=== PATIENT | female | born 2000 | race Caucasian/White ===

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

== ENCOUNTER 2021-04-22 09:56 | Inpatient (IN) ==
[2021-04-22 11:15] LABS: Basophils # (auto) 0.01 K/uL (0-0.2); Basophils % (auto) 0.1 %; Eosinophils # (auto) 0.06 K/uL (0-0.5); Eosinophils % (auto) 0.5 %; Hematocrit (blood only) 36.1 % (37-47); Hemoglobin 11.8 g/dL (12.0-16.0); Immature Granulocytes # (auto) 0.03 K/uL (0.00-0.02); Immature Granulocytes % (auto) 0.2 %; Lymphocytes # (auto) 1.66 K/uL (1.2-3.4); Lymphocytes % (auto) 13.5 %; Mean Corpuscular Hemoglobin 29.4 pg (25-34); Mean Corpuscular Hgb Conc 32.7 g/dL (32-36); Mean Corpuscular Volume 89.8 fL (80-100); Mean Platelet Volume 9.3 fL (7.4-10.4); Monocytes # (auto) 0.47 K/uL (0.11-0.59); Monocytes % (auto) 3.8 %; Neutrophils # (auto) 10.04 K/uL (1.4-6.5); Neutrophils % (auto) 81.9 %; Platelet Count 288 K/uL (130-400); RDW Coefficient of Variation 14.6 % (11.5-14.5); RDW Standard Deviation 47.7 fL (36.4-46.3); Red Blood Count 4.02 M/uL (4.2-5.4); White Blood Count 12.27 K/uL (4.8-10.8)
[2021-04-22 11:15] LABS: Appearance Urine Cloudy (Clear); Bacteria Urine Automated 1+ (Negative); Bilirubin Urine Negative (Negative); Blood Urine Negative (Negative); Color Urine Yellow; Epithelial Cell Urine Auto >30 /lpf (0-5); Glucose Urine UA Negative (Negative); Ketones Urine Negative (Negative); Leukocyte Esterase Urine Trace (Negative); Nitrite Urine Negative (Negative); Protein Urine 3+ (Negative); RBC Urine Automated 0-4 /hpf (0-4); Specific Gravity Urine 1.019 (1.000-1.030); Urobilinogen Urine Negative (Negative); WBC Urine Automated >30 /hpf (0-5)
[2021-04-22 11:37] LABS: Protein Creatinine Ratio Urine 2.5 (0-0.2); Total Protein Urine Random 393.8 mg/dl (0-11.9)
[2021-04-22 11:39] LABS: Albumin Level 2.4 gm/dl (3.4-5.0); BUN Creatinine Ratio 10.1 (10-20); Calcium 9.7 mg/dl (8.5-10.1); Creatinine Clr Calc Pharmacy 118.2 ml/min; Est GFR (African American) 113.5 ml/min; Est GFR (Non-African American) 97.9 ml/min; Potassium 3.9 mmol/L (3.5-5.1)
[2021-04-22 11:42] LABS: Albumin Globulin Ratio 0.5 (0.9-2); Bilirubin,Total 0.2 mg/dl (0.2-1); Globulin 4.8 gm/dl (2.5-4.0); Total Protein 7.2 gm/dl (6.4-8.2)
[2021-04-22] MEDS ORDERED: OXYTOCIN 30 UNITS/500 ML BAG IV PRN ×2 (12:51)
--- NOTE | 2021-04-22 12:55 | History & Physical Report ---
Date of Service April 22, 2021 Assessment & Plan (1) Preeclampsia: Plan: at 39 4/7 weeks with elevated P/Fourdrinier Operator of 2.5. She has no other s/s of pet and her blood pressures here have not been elevated. this appears to be acute in onset. Given no other explanation for this finding, I have to assume atypical preeclampsia with just significantly elevated proteinuria and no blood pressure changes. given the ga of 39 4/7 and favorable cercix, I do not think it is unreasonable to offer induction for this and she is agreeable. Will continue to watch pressures and s/s closely. Fetus category one. If develops any s/s of severe disease, would initiate mag. She expresses understanding of the situation. Plan pit induction and arom as indicated. Desires epidural. Anticipate . History of Present Illness Chief Complaint: contractions Primary Care Provider: Pro Marques DO Patient is a 20yowf with iup at 39 4/7 weeks. Patient initially presented to labor and delivery with contractions. Started last night and have been about q 5 min. no lof/vb. Patient had a urine dip with 3+ protein. this is new. Has never dipped protein before. Urine somewhat concentrated. BPs under obs have been normal. Patient denies s/s of pet at this point including loera/vision changes/n/v/ruq pain/increased swelling . Notes good FM. thus far has been uncomplicated. Today saw pcp and was started on Zoloft for concerns about depression. 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 But her protein to creatinine urine ratio is 2.5 indicating a 24 hr urine with 2500mg. On her pnr, she did have a blood pressure of 160/80 with repeat of 148/84 at her 31 week visit. the rest of her visits her bps have btween 120-130s/70-80. Patient notes she may have had a couple of elevated blood pressures in the past, but nothing wtih a diagnosis of htn. She also notes not history of kidney dysfunction/disorder. Labs Lab Results OB Labs: Blood Type AB Positive 08/30/20 Antibody Screen NEGATIVE 08/30/20 Hemoglobin 10.2 g/dL (12.0-16.0) L 02/21/21 Hematocrit 30.5 % (37-47) L 02/21/21 Mean Corpuscular Volume 90.2 fL (80-100) 02/21/21 Platelet Count 302 K/uL (130-400) 02/21/21 Rubella IgG Antibody Immune (Immune) 08/30/20 Rapid Plasma Reagin Nonreactive (Nonreactive) 08/30/20 Hepatitis B Surface Antigen Neg (Neg) 08/30/20 HIV (1&2) Ab and P24 Ag, 4th Gener Neg (Neg) 08/30/20 Glucose 1 Hour 50 gm Load 125 mg/dl (70-130) 01/24/21 OB Optional Labs: Chlamydia trachomatis RNA NOT DETECTED (NOT DETECTED) 08/30/20 Neisseria gonorrhoeae RNA NOT DETECTED (NOT DETECTED) 08/30/20 Thyroid Stimulating Hormone (TSH) 1.710 uIu/ml (0.510-4.91) 04/25/20 Allergies Allergy/AdvReac Type Severity Reaction Status Date / Time bee venom protein (honey bee) Allergy Unknown swelling Verified 04/22/21 09:06 No Known Drug Allergies Allergy Unknown Verified 04/22/21 10:25 hay Allergy Unknown rash Uncoded 04/22/21 09:06 Home Medications Medication Instructions Recorded Confirmed Type prenat.vits,paddy,evz-trpn-kapml 1 tab PO DAILY 08/28/20 04/22/21 History ferrous sulfate PO 04/22/21 04/22/21 History sertraline 50 mg tablet (Zoloft) 50 mg PO DAILY #30 tab 04/22/21 04/22/21 Rx Patient History Medical History BMI (body mass index), pediatric, 95-99% for age sent for cmp and thyroid Dysmenorrhea s/p depo but did not like mood swings. No ocps because dad clotting history!!! Needs child and adolescent therapist. No control now and not sexually active Eczema Eoing well. Triamcinolone prn Gastroesophageal reflux disease Omeprazole prn but not often. Given GERD sheet and discussed returning if needing often. Surgical History H/O wisdom tooth extraction Family History Father Clotting disorder Cancer testicular Mother No significant active problems Family/Other Hypertension Both grandparents have HTN Social History Smoking Status: Former smoker Tobacco Type: Cigarettes Age Started Using Tobacco: 18; Age Quit Using Tobacco: 20; packs per day: 0.25; Years Smoked: 2; Second Hand Exposure: No; Do You Dip or Chew Tobacco: No; Hx Alcohol Use: No Hx Substance Use: No Preferred Language: Serbian Communication Ability: Effective Visual Impairment: Limited Hearing Ability: Normal Herpetology Teacher Required: No marital status: Single marital status details: carlyle (28) [phone] Current Living Situation: Parent Current Living Situation Comment: lives with mother and 2 sisters - sees father on regular basis current occupational status: unemployed How many Children do You have: 0 How many Children do You have Comment: due April [address] Feels Safe at Home: Yes Safety Concerns: Feels Safe At This Time Childhood Exposure to Second-Hand Smoke: Yes caffeine: Yes (soda) Dental Care, Regularly: Yes Physical Activity Frequency: Does not Exercise Seatbelt Use: always Sunscreen Use: Yes Sexual Activity Comment: Pt is currently 26 weeks - due Apr 2021 w/ girl Assistive Devices: Glasses 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 Review of Systems All systems reviewed & are unremarkable except as noted in HPI & below Physical Exam Constitutional: WD/WN, vitals as above Neck: trachea midline, no thyromegaly Cardiovascular: Extremities: + edema (trace); no calf tenderness Gastrointestinal (Abdomen): soft, gravid, nt Neurologic: patellar DTR's 2+ bilat, sensation intact Psychiatric: A+Ox3, euthymic affect Genitourinary: cx--2/80/-2 toco--q4-6min efm--140s with mod variaiblity, accels to 160s, no decels Results & Data ([facility]) Vital Signs (Past 12 Hours) Vital Signs Temp Pulse Resp BP 04/22/21 12:31 88 129/86 04/22/21 10:27 36.8 C 100 H 20 127/82 04/22/21 10:20 100 H 127/82 Coding Level of Care Code None Diagnoses Preeclampsia O14.90
[2021-04-22 13:26] LABS: Hemoglobin 11.8 g/dL (12.0-16.0); Mean Corpuscular Hemoglobin 29.8 pg (25-34); Mean Corpuscular Hgb Conc 33.7 g/dL (32-36); Mean Corpuscular Volume 88.4 fL (80-100); Mean Platelet Volume 9.4 fL (7.4-10.4); Platelet Count 297 K/uL (130-400); RDW Coefficient of Variation 14.6 % (11.5-14.5); RDW Standard Deviation 47.3 fL (36.4-46.3); Red Blood Count 3.96 M/uL (4.2-5.4); White Blood Count 12.82 K/uL (4.8-10.8)
[2021-04-22] MEDS: LACTATED RINGER'S 1,000 ML IV PRN ×2 (14:17→20:27)
[2021-04-22] MEDS ORDERED: SODIUM CHLORIDE 0.9% INJ 10 ML VIAL ONE (19:58)
[2021-04-22] MEDS ORDERED: fentaNYL citrate 100 MCG/2 ML VIAL ONE ×2 (19:58→22:35)
[2021-04-22] MEDS ORDERED: BUPIVACAINE 0.25% 30 ML VIAL ONE (19:58)
[2021-04-22] MEDS ORDERED: ePHEDrine sulfate 50 MG/ML AMP ONE (19:58)
[2021-04-22] MEDS ORDERED: fentaNYL 2MCG/ML ROPIVACAINE 1.25MG/ML 100 ML BAG EPI ONE (19:59)
--- NOTE | 2021-04-22 20:34 | Anesthesiology Consultation ---
Date of Service April 22, 2021 Assessment & Plan Chart Review Chart Review: Acceptable Risk for Labor Epidural Consults Requested none History Height/Weight Height: 5 ft 3 in Weight: 99.337 kg Allergies Allergy/AdvReac Type Severity Reaction Status Date / Time bee venom protein (honey bee) Allergy Unknown swelling Verified 04/22/21 09:06 No Known Drug Allergies Allergy Unknown Verified 04/22/21 10:25 hay Allergy Unknown rash Uncoded 04/22/21 09:06 Medications Home Medications Medication Instructions Recorded Confirmed Last Taken prenat.vits,paddy,ntc-zsyj-jftcb 1 tab PO DAILY 08/28/20 04/22/21 04/21/21 20:00 ferrous sulfate 325 mg (65 mg 325 mg PO BID 04/22/21 04/22/21 04/21/21 20:00 iron) tablet (Iron (ferrous sulfate)) sertraline 50 mg tablet (Zoloft) 50 mg PO DAILY #30 tab 04/22/21 04/22/21 Unknow n Active Medications Generic Name Dose Route Start Last Admin Trade Name Jorge PRN Reason Stop Dose Admin Lactated Ringer's 1,000 mls @ 125 mls/hr 04/22/21 12:51 04/22/21 20:27 Lr IV 04/24/21 12:50 125 mls/hr .Q8H PRN Administration L&D Protocol Protocol Oxytocin 30 units in 500 mls @ 15 mls/hr 04/22/21 12:51 04/22/21 18:35 Pitocin IV 04/24/21 12:50 0.9 units/hr .Q24H PRN 15 mls/hr Labor Induction/Augmentation Titration Protocol 0.9 UNITS/HR Past Medical History Medical History BMI (body mass index), pediatric, 95-99% for age sent for cmp and thyroid Dysmenorrhea s/p depo but did not like mood swings. No ocps because dad clotting history!!! Needs manager food. No control now and not sexually active Eczema Eoing well. Triamcinolone prn Gastroesophageal reflux disease Omeprazole prn but not often. Given GERD sheet and discussed returning if needing often. Past Family History Family History Father Clotting disorder Cancer testicular Mother No significant active problems Family/Other Hypertension Both grandparents have HTN Past Surgical History Surgical History H/O wisdom tooth extraction Social History Smoking Status: Former smoker tobacco type: cigarettes Do You Dip or Chew Tobacco: No Hx Alcohol Use: No Hx Substance Use: No Physical Exam Vital Signs Last Vital Signs Temp 36.8 C 04/22/21 15:14 Pulse 88 04/22/21 20:31 Resp 18 04/22/21 15:14 BP 133/69 04/22/21 20:31 Pulse Ox 100 04/22/21 20:30 Testing Laboratory Results 04/22/21 13:18 04/22/21 11:01 Urine Color Yellow 04/22/21 Unknown Urine Appearance Cloudy (Clear) A 04/22/21 Unknown Urine pH 7.0 (4.5-7.5) 04/22/21 Unknown Ur Specific [place] 1.019 (1.000-1.030) 04/22/21 Unknown Urine Protein 3+ (Negative) H 04/22/21 Unknown Urine Glucose (UA) Negative (Negative) 04/22/21 Unknown Urine Ketones Negative (Negative) 04/22/21 Unknown Urine Nitrite Negative (Negative) 04/22/21 Unknown Ur Leukocyte Esterase Trace (Negative) H 04/22/21 Unknown Urine WBC (Auto) >30 /hpf (0-5) H 04/22/21 Unknown Urine RBC (Auto) 0-4 /hpf (0-4) 04/22/21 Unknown U Hyaline Cast (Auto) 10-30 /lpf (0-5) H 04/22/21 Unknown U Epithel Cells (Auto) >30 /lpf (0-5) H 04/22/21 Unknown Urine Bacteria (Auto) 1+ (Negative) H 04/22/21 Unknown
[2021-04-22] MEDS ORDERED: diphenhydrAMINE 50 MG/ML VIAL IV PRN (20:36)
[2021-04-22] MEDS ORDERED: ePHEDrine sulfate 50 MG/ML AMP IV PRN (20:36)
[2021-04-22] MEDS ORDERED: NALOXONE HCL 1 MG in SODIUM CHLORIDE 0.9% 1000ML 1,000 ML IV PRN (20:36)
[2021-04-22] MEDS ORDERED: fentaNYL 2MCG/ML ROPIVACAINE 1.25MG/ML 100 ML BAG EPI PRN (20:36)
[2021-04-22] MEDS ORDERED: NALBUPHINE HCL INJ 10 MG/ML AMP IV PRN (20:36)
[2021-04-22] MEDS ORDERED: NALOXONE HCL 0.4 MG/1 ML VIAL/CARP IV PRN (20:36)
--- NOTE | 2021-04-22 21:02 | Labor Progress Brief Note ---
Date of Service April 22, 2021 Subjective comfortable with epidural. no s/s pet. Pressures good Assessment & Plan (1) Preeclampsia: Plan: stable. arom. continue current management. fetus category one. Admission and Anticipated Discharge Date Admission Date: April 22, 2021 Physical Exam Physical Exam: cx--3-4/90/-2 arom--clear toco--q 2-4min, difficult tracing, pit at 15 efm--130 with moderate variability, accels to 160s, no decels Results & Data ([facility]) Vital Signs (Past 12 Hours) Vital Signs Temp Pulse Resp BP Pulse Ox 04/22/21 20:55 86 99 04/22/21 20:50 82 100 04/22/21 20:49 75 123/62 04/22/21 20:45 77 100 04/22/21 20:40 85 100 04/22/21 20:35 83 100 04/22/21 20:31 88 133/69 04/22/21 20:30 89 100 04/22/21 20:29 81 134/71 04/22/21 20:27 134/72 04/22/21 20:26 72 137/75 04/22/21 20:25 72 99 04/22/21 20:24 78 147/78 H 04/22/21 20:22 99 H 146/76 H 04/22/21 20:20 104 H 98 04/22/21 20:19 107 H 92 04/22/21 20:15 96 H 100 04/22/21 20:14 96 H 154/76 H 04/22/21 20:10 101 H 98 04/22/21 19:14 83 132/84 04/22/21 18:15 85 134/79 04/22/21 17:19 99 H 139/76 04/22/21 16:14 88 129/76 04/22/21 15:14 36.8 C 89 18 123/74 04/22/21 14:14 93 H 128/72 04/22/21 12:31 88 129/86 04/22/21 10:27 36.8 C 100 H 20 127/82 04/22/21 10:20 100 H 127/82 Coding Level of Care Code None Diagnoses Preeclampsia O14.90
[2021-04-22] MEDS ORDERED: ONDANSETRON INJ 2 MG/ML 2 ML VIAL IV ONE (21:36)
[2021-04-22] MEDS ORDERED: NURSING L&D Epidural Breakthrough Pain Update ONE (22:31)
[2021-04-22] MEDS ORDERED: LIDOCAINE 2% MPF LOCAL 5 ML VIAL INFIL ONE (22:35)
--- NOTE | 2021-04-22 23:32 | Communication Note ---
Date of Service: April 22, 2021 Pt has epidural, c/o pain. Dosed with 2%lido 5cc + fentanyl 100mcg with relief.
--- NOTE | 2021-04-22 23:38 | Labor Progress Brief Note ---
Date of Service April 22, 2021 Subjective more comfortable after epidural redose Assessment & Plan (1) Preeclampsia: Plan: making progress. hold pit at 17. fetus category one. anticipate . Admission and Anticipated Discharge Date Admission Date: April 22, 2021 Physical Exam Physical Exam: cx--8/100/0 toco--q1-2min, pit at 17 efm--140s wtih mod variability , small accels , no decels [facility] ([facility]) Vital Signs (Past 12 Hours) Vital Signs Temp Pulse Resp BP Pulse Ox 04/22/21 23:35 86 99 04/22/21 23:30 74 99 04/22/21 23:27 85 126/59 L 04/22/21 23:25 91 H 99 04/22/21 23:20 75 99 04/22/21 23:15 83 99 04/22/21 23:14 85 124/61 04/22/21 23:10 81 99 04/22/21 23:05 85 99 04/22/21 23:00 99 H 18 100 04/22/21 22:57 83 136/63 04/22/21 22:55 79 134/66 97 04/22/21 22:53 83 136/65 04/22/21 22:51 75 138/64 04/22/21 22:50 77 99 04/22/21 22:49 97 H 147/74 H 04/22/21 22:47 83 138/68 04/22/21 22:45 37.3 C 82 140/67 99 04/22/21 22:43 95 H 147/78 H 04/22/21 22:41 83 146/75 H 04/22/21 22:40 92 H 98 04/22/21 22:39 85 145/77 H 04/22/21 22:35 91 H 100 04/22/21 22:33 85 139/67 04/22/21 22:31 78 91 04/22/21 22:30 84 20 99 04/22/21 22:25 82 96 04/22/21 22:20 91 H 160/89 H 100 04/22/21 22:15 95 H 100 04/22/21 22:11 92 H 93 04/22/21 22:10 87 100 04/22/21 22:05 89 98 04/22/21 22:03 81 141/69 H 04/22/21 22:00 85 18 100 04/22/21 21:59 95 H 93 04/22/21 21:55 93 H 100 04/22/21 21:50 70 100 04/22/21 21:48 69 152/85 H 04/22/21 21:45 72 100 04/22/21 21:40 87 95 04/22/21 21:35 144 H 96 04/22/21 21:34 148 H 173/95 H 04/22/21 21:30 79 18 100 04/22/21 21:25 76 100 04/22/21 21:20 85 100 04/22/21 21:18 76 137/75 04/22/21 21:15 77 100 04/22/21 21:10 73 100 04/22/21 21:05 71 100 04/22/21 21:04 66 134/71 04/22/21 21:00 37.0 C 70 18 100 04/22/21 20:55 86 99 04/22/21 20:50 82 100 04/22/21 20:49 75 123/62 04/22/21 20:45 77 100 04/22/21 20:40 85 100 04/22/21 20:35 83 100 04/22/21 20:31 88 133/69 04/22/21 20:30 89 100 04/22/21 20:29 81 134/71 04/22/21 20:27 134/72 04/22/21 20:26 72 137/75 04/22/21 20:25 72 99 04/22/21 20:24 78 147/78 H 04/22/21 20:22 99 H 146/76 H 04/22/21 20:20 104 H 98 04/22/21 20:19 107 H 92 04/22/21 20:15 96 H 100 04/22/21 20:14 96 H 154/76 H 04/22/21 20:10 101 H 98 04/22/21 19:14 83 132/84 04/22/21 18:15 85 134/79 04/22/21 17:19 99 H 139/76 04/22/21 16:14 88 129/76 04/22/21 15:14 36.8 C 89 18 123/74 04/22/21 14:14 93 H 128/72 04/22/21 12:31 88 129/86 Coding Level of Care Code None Diagnoses Preeclampsia O14.90
[2021-04-23] MEDS: LACTATED RINGER'S 1,000 ML IV PRN (01:22)
--- NOTE | 2021-04-23 02:25 | Labor Progress Brief Note ---
Date of Service April 23, 2021 Subjective very uncomfortable, shaking pressure Assessment & Plan (1) Preeclampsia: Plan: Will begin second stage. going to cut back the pit to 10 as she is having ctx one on top of another and not really getting alot of break. Fetus category one and tolerating. Admission and Anticipated Discharge Date Admission Date: April 22, 2021 Physical Exam Physical Exam: cx--c/c/0-+1 toco--q1-2min, pit at 17 efm--120s with mod variability, accels to 150s, +scalp stim, no decels Results & Data ([facility]) Vital Signs (Past 12 Hours) Vital Signs Temp Pulse Resp BP Pulse Ox 04/23/21 02:20 122 H 99 04/23/21 02:15 104 H 98 04/23/21 02:13 101 H 140/72 04/23/21 02:10 107 H 98 04/23/21 02:05 110 H 99 04/23/21 02:00 106 H 98 04/23/21 01:57 92 H 134/66 04/23/21 01:55 94 H 98 04/23/21 01:50 104 H 98 04/23/21 01:45 92 H 97 04/23/21 01:43 93 H 130/61 04/23/21 01:40 108 H 99 04/23/21 01:35 98 H 98 04/23/21 01:30 88 98 04/23/21 01:27 91 H 127/65 04/23/21 01:25 95 H 98 04/23/21 01:20 84 98 04/23/21 01:15 94 H 100 04/23/21 01:13 89 112/60 04/23/21 01:10 99 H 98 04/23/21 01:05 87 97 04/23/21 01:00 98 H 98 04/23/21 00:58 93 H 124/59 L 04/23/21 00:55 91 H 97 04/23/21 00:50 90 97 04/23/21 00:45 85 97 04/23/21 00:43 83 124/57 L 04/23/21 00:40 84 97 04/23/21 00:35 83 98 04/23/21 00:30 85 99 04/23/21 00:28 105 H 133/57 L 04/23/21 00:25 85 98 04/23/21 00:20 89 98 04/23/21 00:15 87 99 04/23/21 00:12 81 115/58 L 04/23/21 00:10 83 98 04/23/21 00:05 82 98 04/23/21 00:00 36.8 C 81 18 99 04/22/21 23:57 82 115/56 L 04/22/21 23:55 82 100 04/22/21 23:50 87 98 04/22/21 23:45 82 99 04/22/21 23:43 80 113/56 L 04/22/21 23:40 78 100 04/22/21 23:35 86 99 04/22/21 23:30 74 99 04/22/21 23:27 85 126/59 L 04/22/21 23:25 91 H 99 04/22/21 23:20 75 99 04/22/21 23:15 83 99 04/22/21 23:14 85 124/61 04/22/21 23:10 81 99 04/22/21 23:05 85 99 04/22/21 23:00 99 H 18 100 04/22/21 22:57 83 136/63 04/22/21 22:55 79 134/66 97 04/22/21 22:53 83 136/65 04/22/21 22:51 75 138/64 04/22/21 22:50 77 99 04/22/21 22:49 97 H 147/74 H 04/22/21 22:47 83 138/68 04/22/21 22:45 37.3 C 82 140/67 99 04/22/21 22:43 95 H 147/78 H 04/22/21 22:41 83 146/75 H 04/22/21 22:40 92 H 98 04/22/21 22:39 85 145/77 H 04/22/21 22:35 91 H 100 04/22/21 22:33 85 139/67 04/22/21 22:31 78 91 04/22/21 22:30 84 20 99 04/22/21 22:25 82 96 04/22/21 22:20 91 H 160/89 H 100 04/22/21 22:15 95 H 100 04/22/21 22:11 92 H 93 04/22/21 22:10 87 100 04/22/21 22:05 89 98 04/22/21 22:03 81 141/69 H 04/22/21 22:00 85 18 100 04/22/21 21:59 95 H 93 04/22/21 21:55 93 H 100 04/22/21 21:50 70 100 04/22/21 21:48 69 152/85 H 04/22/21 21:45 72 100 04/22/21 21:40 87 95 04/22/21 21:35 144 H 96 04/22/21 21:34 148 H 173/95 H 04/22/21 21:30 79 18 100 04/22/21 21:25 76 100 04/22/21 21:20 85 100 04/22/21 21:18 76 137/75 04/22/21 21:15 77 100 04/22/21 21:10 73 100 04/22/21 21:05 71 100 04/22/21 21:04 66 134/71 04/22/21 21:00 37.0 C 70 18 100 04/22/21 20:55 86 99 04/22/21 20:50 82 100 04/22/21 20:49 75 123/62 04/22/21 20:45 77 100 04/22/21 20:40 85 100 04/22/21 20:35 83 100 04/22/21 20:31 88 133/69 04/22/21 20:30 89 100 04/22/21 20:29 81 134/71 04/22/21 20:27 134/72 04/22/21 20:26 72 137/75 04/22/21 20:25 72 99 04/22/21 20:24 78 147/78 H 04/22/21 20:22 99 H 146/76 H 04/22/21 20:20 104 H 98 04/22/21 20:19 107 H 92 04/22/21 20:15 96 H 100 04/22/21 20:14 96 H 154/76 H 04/22/21 20:10 101 H 98 04/22/21 19:14 83 132/84 04/22/21 18:15 85 134/79 04/22/21 17:19 99 H 139/76 04/22/21 16:14 88 129/76 04/22/21 15:14 36.8 C 89 18 123/74 Coding Level of Care Code None Diagnoses Preeclampsia O14.90
--- NOTE | 2021-04-23 02:54 | Communication Note ---
Date of Service: April 23, 2021 Patient attempting to push. Can't tell when she has a contraction because she just constantly hurts. I can feel a rim of cervix anteriorly now. Need to stop and attempt to redose epidural. Baby is still quite high 0-+1. Pelvis seems narrow. Having some concern about the baby fitting through. Difficult to determine position because of develpment of caput. fse placed as baseline in 120s and maternal hr in 120s at times as well and difficult to trace baby at times.
[2021-04-23] MEDS ORDERED: fentaNYL citrate 100 MCG/2 ML VIAL ONE ×2 (03:02→06:32)
[2021-04-23] MEDS ORDERED: LIDOCAINE 2% MPF LOCAL 5 ML VIAL INFIL ONE (03:02)
--- NOTE | 2021-04-23 03:15 | Communication Note ---
Date of Service: April 23, 2021 Pt has epidural infusion, c/o pain. Nearly fully dilated. OB asked for increased analgesia. 2% lido 5cc plus fentanyl 100mcg plus 1.5% lido with epi 5cc given in divided doses. VSS.
--- NOTE | 2021-04-23 05:03 | Labor Progress Brief Note ---
Date of Service April 23, 2021 Subjective Very uncomfortable again. Did get relief for a bit but now very uncomfortable again. Assessment & Plan (1) Preeclampsia: Plan: Patient cannot get comfortable and the station has not descended since she was 7-8cm. I don't think this baby is going to fit through the pelvis. However, I cannot know this for sure and offered effort at pushing. The patient declines this and wishes to just proceed with c/s. Risks of anesthesia, bleeding, transfusion, infection, poor wound healing, injury to structures, need for further surgery, injury to the baby reviewed. Consent reviewed and signed. Admission and Anticipated Discharge Date Admission Date: April 22, 2021 Physical Exam Physical Exam: cx--do not feel the lip anymore/station 0 toco--q 2-3, pit at 15 efm--120s with mod variabiltiy, small accels, occasional variable with contraction. Results & Data ([facility]) Vital Signs (Past 12 Hours) Vital Signs Temp Pulse Resp BP Pulse Ox 04/23/21 04:55 88 99 04/23/21 04:53 94 H 152/81 H 04/23/21 04:50 119 H 95 04/23/21 04:45 112 H 99 04/23/21 04:40 116 H 100 04/23/21 04:35 115 H 100 04/23/21 04:30 120 H 92 04/23/21 04:25 89 100 04/23/21 04:20 129 H 132/71 96 04/23/21 04:15 87 100 04/23/21 04:10 84 99 04/23/21 04:05 97 H 131/70 99 04/23/21 04:00 114 H 100 04/23/21 03:55 83 100 04/23/21 03:50 96 H 133/65 100 04/23/21 03:45 87 99 04/23/21 03:40 98 H 98 04/23/21 03:35 95 H 124/62 97 04/23/21 03:30 88 100 04/23/21 03:25 91 H 98 04/23/21 03:20 97 H 97 04/23/21 03:19 118 H 149/74 H 04/23/21 03:17 100 H 136/73 04/23/21 03:15 102 H 139/75 96 04/23/21 03:13 141 H 136/76 04/23/21 03:10 105 H 93 04/23/21 03:09 103 H 105/58 L 04/23/21 03:07 116 H 114/74 04/23/21 03:05 109 H 119/78 98 04/23/21 03:00 126 H 20 99 04/23/21 02:57 129 H 113/79 04/23/21 02:55 113 H 98 04/23/21 02:50 115 H 98 04/23/21 02:45 122 H 96 04/23/21 02:40 139 H 98 04/23/21 02:35 125 H 98 04/23/21 02:30 110 H 98 04/23/21 02:27 111 H 141/82 H 04/23/21 02:25 95 H 99 04/23/21 02:20 122 H 99 04/23/21 02:15 104 H 98 04/23/21 02:13 101 H 140/72 04/23/21 02:10 107 H 98 04/23/21 02:05 110 H 99 04/23/21 02:00 106 H 18 98 04/23/21 01:57 92 H 134/66 04/23/21 01:55 94 H 98 04/23/21 01:50 104 H 98 04/23/21 01:45 92 H 97 04/23/21 01:43 93 H 130/61 04/23/21 01:40 108 H 99 04/23/21 01:35 98 H 98 04/23/21 01:30 88 98 04/23/21 01:27 91 H 127/65 04/23/21 01:25 95 H 98 04/23/21 01:20 84 98 04/23/21 01:15 94 H 100 04/23/21 01:13 89 112/60 04/23/21 01:10 99 H 98 04/23/21 01:05 87 97 04/23/21 01:00 98 H 98 04/23/21 00:58 93 H 124/59 L 04/23/21 00:55 91 H 97 04/23/21 00:50 90 97 04/23/21 00:45 85 97 04/23/21 00:43 83 124/57 L 04/23/21 00:40 84 97 04/23/21 00:35 83 98 04/23/21 00:30 85 99 04/23/21 00:28 105 H 133/57 L 04/23/21 00:25 85 98 04/23/21 00:20 89 98 04/23/21 00:15 87 99 04/23/21 00:12 81 115/58 L 04/23/21 00:10 83 98 04/23/21 00:05 82 98 04/23/21 00:00 36.8 C 81 18 99 04/22/21 23:57 82 115/56 L 04/22/21 23:55 82 100 04/22/21 23:50 87 98 04/22/21 23:45 82 99 04/22/21 23:43 80 113/56 L 04/22/21 23:40 78 100 04/22/21 23:35 86 99 04/22/21 23:30 74 99 04/22/21 23:27 85 126/59 L 04/22/21 23:25 91 H 99 04/22/21 23:20 75 99 04/22/21 23:15 83 99 04/22/21 23:14 85 124/61 04/22/21 23:10 81 99 04/22/21 23:05 85 99 04/22/21 23:00 99 H 18 100 04/22/21 22:57 83 136/63 04/22/21 22:55 79 134/66 97 04/22/21 22:53 83 136/65 04/22/21 22:51 75 138/64 04/22/21 22:50 77 99 04/22/21 22:49 97 H 147/74 H 04/22/21 22:47 83 138/68 04/22/21 22:45 37.3 C 82 140/67 99 04/22/21 22:43 95 H 147/78 H 04/22/21 22:41 83 146/75 H 04/22/21 22:40 92 H 98 04/22/21 22:39 85 145/77 H 04/22/21 22:35 91 H 100 04/22/21 22:33 85 139/67 04/22/21 22:31 78 91 04/22/21 22:30 84 20 99 04/22/21 22:25 82 96 04/22/21 22:20 91 H 160/89 H 100 04/22/21 22:15 95 H 100 04/22/21 22:11 92 H 93 04/22/21 22:10 87 100 04/22/21 22:05 89 98 04/22/21 22:03 81 141/69 H 04/22/21 22:00 85 18 100 04/22/21 21:59 95 H 93 04/22/21 21:55 93 H 100 04/22/21 21:50 70 100 04/22/21 21:48 69 152/85 H 04/22/21 21:45 72 100 04/22/21 21:40 87 95 04/22/21 21:35 144 H 96 04/22/21 21:34 148 H 173/95 H 04/22/21 21:30 79 18 100 04/22/21 21:25 76 100 04/22/21 21:20 85 100 04/22/21 21:18 76 137/75 04/22/21 21:15 77 100 04/22/21 21:10 73 100 04/22/21 21:05 71 100 04/22/21 21:04 66 134/71 04/22/21 21:00 37.0 C 70 18 100 04/22/21 20:55 86 99 04/22/21 20:50 82 100 04/22/21 20:49 75 123/62 04/22/21 20:45 77 100 04/22/21 20:40 85 100 04/22/21 20:35 83 100 04/22/21 20:31 88 133/69 04/22/21 20:30 89 100 04/22/21 20:29 81 134/71 04/22/21 20:27 134/72 04/22/21 20:26 72 137/75 04/22/21 20:25 72 99 04/22/21 20:24 78 147/78 H 04/22/21 20:22 99 H 146/76 H 04/22/21 20:20 104 H 98 04/22/21 20:19 107 H 92 04/22/21 20:15 96 H 100 04/22/21 20:14 96 H 154/76 H 04/22/21 20:10 101 H 98 04/22/21 19:14 83 132/84 04/22/21 18:15 85 134/79 04/22/21 17:19 99 H 139/76 Coding Level of Care Code None Diagnoses Preeclampsia O14.90
[2021-04-23] MEDS ORDERED: LACTATED RINGER'S 1,000 ML IV SCH ×2 (05:15→06:45)
[2021-04-23] MEDS ORDERED: ceFAZolin 2000MG 2,000 MG/15 ML SYR IV SCH (06:00)
[2021-04-23] MEDS ORDERED: CITRIC ACID/SODIUM CITRATE 15 ML UDC PO SCH (06:00)
[2021-04-23] MEDS ORDERED: AZITHROMYCIN 500 MG in DEXTROSE 5% 250 ML IV SCH (06:00)
[2021-04-23] MEDS ORDERED: MoRPHine SULFATE PF 1 MG/ML 10 ML AMP/VIAL ONE (06:02)
[2021-04-23] MEDS ORDERED: LABETALOL HCL IV 5 MG/ML 20ML IV ONE (06:23)
[2021-04-23] MEDS ORDERED: PROPOFOL IV EMULSION 10 MG/ML 20 ML VIAL IV ONE (06:23)
[2021-04-23] MEDS ORDERED: SUCCINYLCHOLINE CHLORIDE 20 MG/ML 10 ML VIAL IV ONE (06:23)
[2021-04-23] MEDS ORDERED: OXYTOCIN 10 UNITS/ML VIAL ONE ×2 (06:23)
--- NOTE | 2021-04-23 06:30 | Operative Report ---
PG Post Operative Report Pre & Post Diagnosis Operation Date: 04/23/21 04:50 Pre-Op Diagnosis: 1. at 39 weeks 2. preeclampsia without severe features 3. failure to decend Post-Op Diagnosis: 1. at 39 weeks 2. preeclampsia without severe features 3. failure to decend I identified the patient and participated in the time-out.: Yes Procedure Operation Date: 04/23/21 04:50 Actual Procedures p primary low transverse Section in LD - Josie Tobar MD, FACOG Surgeon Josie Tobar MD, FACOG Extrusion Supervisor Robert Morse RN Estimated Blood Loss 700 Findings Consistent with Post-Op Diagnosis viable female , op, wedged into pelvis. nl tubes and ovaries bilaterally. Fluids 600cc Specimens placenta Drains yanez Anesthesia Type General Complications none Disposition Accompanied Patient To Recovery: No Disposition: L&D Indications 39 4/7 weeks with ftd. Description of Procedure The patient was taken to the operating room where she was identified verbally and by bracelet. The patient was prepped and draped in a normal standard fashion. A yanez catheter had been placed. General anesthesia was then induced. A time-out was held, identifying correct patient, procedure, positioning and preoperative antibiotics. There were no concerns. this was done prior to patient going under anesthesia. A Pfannenstiel skin incision was made with a knife and taken down to the underlying layer of fascia with the knife and Bovie electrocautery. Bleeding was attended to with the Bovie. The fascia was incised in the midline with the knife and taken out laterally with scissors. The superior edge of the fascial incision was grasped, elevated and the underlying layer of rectus muscle was taken off bluntly and with scissors. In a similar fashion, the inferior edge of the fascial incision was grasped, elevated and the underlying layer of rectus muscle was taken off bluntly and with scissors. The muscles were bluntly in the midline. The peritoneum was entered bluntly. The incision was then stretched. The bladder blade was placed. The vesicouterine peritoneum was identified, entered with scissors and taken out laterally with scissors. The bladder flap was created digitally A hysterotomy incision was scored with a knife and the incision was stretched superiorly and inferiorly with the painting machine operator's fingers. The operators hand was placed into the incision and the head was delivered atraumaticall, OP. No nuchal cord. The nose and mouth were bulb suctioned. the rest of the infant was then delivered without difficulty. The nose and mouth were again bulb suctioned. The cord was clamped and cut and the was then handed off to the awaiting alumni secretary for drying and attention. Cord blood and segment were obtained. The placenta was Manually extracted. The uterus was exteriorized and cleared of all clot and debris with moistened laparotomy sponges. Hemobate was needed into the uterine muscle for hemostasis. The hysterotomy incision was repaired in two layers, the first in a running locked layer, the second in an imbricating layer. Hemostasis was noted to be good. Posterior cul-de-sac was irrigated and cleared of all clot and debris. The hysterotomy incision was again inspected and found to be hemostatic. the uterus was reinteriorized. Hysterotomy incision was again inspected and one suture needed for hemostasis.. Rectus muscles were reapproximated with several interrupted stitches of 0 Vicryl. The fascia was then reapproximated with 0 Vicryl starting at the edges and meeting in the midline. The subcuticular tissues were copiously irrigated and bleeding was attended to with cautery. The skin was then closed with 4-0 Vicryl in a subcuticular fashion. All sponge, lap and needle counts correct x 2 and patient taken to recovery in stable condition. I attest to the content of the Intraoperative Record and any orders documented therein. Any exceptions are noted below. OB Procedure Charges 20977
[2021-04-23] MEDS ORDERED: HYDROCORTISONE ACETATE 25 MG SUPP PR PRN (06:33)
[2021-04-23] MEDS ORDERED: SUPERCREAM 0.870% 15 GM JAR EXT PRN (06:33)
[2021-04-23] MEDS ORDERED: ONDANSETRON INJ 2 MG/ML 2 ML VIAL IV PRN (06:33)
[2021-04-23] MEDS ORDERED: DIPHTHERIA/TETANUS/PERTUSSIS 0.5 ML SYR/VIAL IM ONE (06:33)
[2021-04-23] MEDS ORDERED: diphenhydrAMINE Capsule 25 MG CAP PO PRN (06:33)
[2021-04-23] MEDS ORDERED: MEPERIDINE HCL 50 MG/ML CARP IV PRN (06:33)
[2021-04-23] MEDS ORDERED: PROMETHAZINE HCL 25 MG in SODIUM CHLORIDE 0.9% 50 ML IV PRN (06:33)
[2021-04-23] MEDS ORDERED: MAGNESIUM HYDROXIDE SUSP 30 ML UDC PO PRN (06:33)
[2021-04-23] MEDS ORDERED: SENNA 8.6 MG TAB PO PRN (06:33)
[2021-04-23] MEDS ORDERED: BENZOCAINE 20% AER SPR 82.5 GM CAN EXT PRN (06:33)
[2021-04-23] MEDS ORDERED: diphenhydrAMINE 50 MG/ML VIAL IV PRN (06:33)
--- NOTE | 2021-04-23 07:00 | Anesthesia Procedure Note ---
Date of Service April 23, 2021 Anesthesia Post Epidural Note Vital Signs Vital Signs: Temp Pulse Resp BP Pulse Ox 36.8 C 103 H 20 143/80 H 93 04/23/21 00:00 04/23/21 06:57 04/23/21 03:00 04/23/21 06:52 04/23/21 06:57 Notes Mental Status: alert / awake / arousable Nausea / Vomiting: adequately controlled Pain: adequately controlled Airway Patency, RR, SpO2: stable & adequate BP & HR: stable & adequate Hydration State: stable & adequate Neuraxial Anesthesia: was administered and sensory block is resolving Anesthetic Complications: no major complications apparent and Pt Satisfied with anesthetic care Epidural: Removed without complications and With tip intact
[2021-04-23] MEDS: KETOROLAC 30 MG/ML VIAL IV PRN ×2 (07:10→20:40)
--- NOTE | 2021-04-23 07:25 | Anesthesiology Progress Note ---
Date of Service April 23, 2021 Anesthesia Post Procedure Vital Signs Vital Signs: Temp Pulse Resp BP Pulse Ox 04/23/21 07:23 88 128/70 04/23/21 07:22 87 92 04/23/21 07:17 93 H 92 04/23/21 07:13 94 H 138/86 04/23/21 07:12 93 H 93 04/23/21 07:07 86 92 04/23/21 07:03 95 H 140/76 04/23/21 07:02 93 H 93 04/23/21 06:57 103 H 93 04/23/21 06:52 93 H 143/80 H 92 04/23/21 06:47 100 H 93 04/23/21 06:43 95 H 139/83 94 04/23/21 06:42 94 H 94 04/23/21 05:25 106 H 98 04/23/21 05:20 97 H 146/88 H 98 04/23/21 05:15 89 100 04/23/21 05:10 88 99 04/23/21 05:05 101 H 132/73 98 04/23/21 05:00 90 97 04/23/21 04:55 88 99 04/23/21 04:53 94 H 152/81 H 04/23/21 04:50 119 H 95 04/23/21 04:45 112 H 99 04/23/21 04:40 116 H 100 04/23/21 04:35 115 H 100 04/23/21 04:30 120 H 92 04/23/21 04:25 89 100 04/23/21 04:20 129 H 132/71 96 04/23/21 04:15 87 100 04/23/21 04:10 84 99 04/23/21 04:05 97 H 131/70 99 04/23/21 04:00 114 H 100 04/23/21 03:55 83 100 04/23/21 03:50 96 H 133/65 100 04/23/21 03:45 87 99 04/23/21 03:40 98 H 98 04/23/21 03:35 95 H 124/62 97 04/23/21 03:30 88 100 04/23/21 03:25 91 H 98 04/23/21 03:20 97 H 97 04/23/21 03:19 118 H 149/74 H 04/23/21 03:17 100 H 136/73 04/23/21 03:15 102 H 139/75 96 04/23/21 03:13 141 H 136/76 04/23/21 03:10 105 H 93 04/23/21 03:09 103 H 105/58 L 04/23/21 03:07 116 H 114/74 04/23/21 03:05 109 H 119/78 98 04/23/21 03:00 126 H 20 99 04/23/21 02:57 129 H 113/79 04/23/21 02:55 113 H 98 04/23/21 02:50 115 H 98 04/23/21 02:45 122 H 96 04/23/21 02:40 139 H 98 04/23/21 02:35 125 H 98 04/23/21 02:30 110 H 98 04/23/21 02:27 111 H 141/82 H 04/23/21 02:25 95 H 99 04/23/21 02:20 122 H 99 04/23/21 02:15 104 H 98 04/23/21 02:13 101 H 140/72 04/23/21 02:10 107 H 98 04/23/21 02:05 110 H 99 04/23/21 02:00 106 H 18 98 04/23/21 01:57 92 H 134/66 04/23/21 01:55 94 H 98 04/23/21 01:50 104 H 98 04/23/21 01:45 92 H 97 04/23/21 01:43 93 H 130/61 04/23/21 01:40 108 H 99 04/23/21 01:35 98 H 98 04/23/21 01:30 88 98 04/23/21 01:27 91 H 127/65 04/23/21 01:25 95 H 98 04/23/21 01:20 84 98 04/23/21 01:15 94 H 100 04/23/21 01:13 89 112/60 04/23/21 01:10 99 H 98 04/23/21 01:05 87 97 04/23/21 01:00 98 H 98 04/23/21 00:58 93 H 124/59 L 04/23/21 00:55 91 H 97 04/23/21 00:50 90 97 04/23/21 00:45 85 97 04/23/21 00:43 83 124/57 L 04/23/21 00:40 84 97 04/23/21 00:35 83 98 04/23/21 00:30 85 99 04/23/21 00:28 105 H 133/57 L 04/23/21 00:25 85 98 04/23/21 00:20 89 98 04/23/21 00:15 87 99 04/23/21 00:12 81 115/58 L 04/23/21 00:10 83 98 04/23/21 00:05 82 98 04/23/21 00:00 36.8 C 81 18 99 04/22/21 23:57 82 115/56 L 04/22/21 23:55 82 100 04/22/21 23:50 87 98 04/22/21 23:45 82 99 04/22/21 23:43 80 113/56 L 04/22/21 23:40 78 100 04/22/21 23:35 86 99 04/22/21 23:30 74 99 04/22/21 23:27 85 126/59 L 04/22/21 23:25 91 H 99 04/22/21 23:20 75 99 04/22/21 23:15 83 99 04/22/21 23:14 85 124/61 04/22/21 23:10 81 99 04/22/21 23:05 85 99 04/22/21 23:00 99 H 18 100 04/22/21 22:57 83 136/63 04/22/21 22:55 79 134/66 97 04/22/21 22:53 83 136/65 04/22/21 22:51 75 138/64 04/22/21 22:50 77 99 04/22/21 22:49 97 H 147/74 H 04/22/21 22:47 83 138/68 04/22/21 22:45 37.3 C 82 140/67 99 04/22/21 22:43 95 H 147/78 H 04/22/21 22:41 83 146/75 H 04/22/21 22:40 92 H 98 04/22/21 22:39 85 145/77 H 04/22/21 22:35 91 H 100 04/22/21 22:33 85 139/67 04/22/21 22:31 78 91 11/29/21 22:30 84 20 99 04/22/21 22:25 82 96 04/22/21 22:20 91 H 160/89 H 100 04/22/21 22:15 95 H 100 04/22/21 22:11 92 H 93 04/22/21 22:10 87 100 04/22/21 22:05 89 98 04/22/21 22:03 81 141/69 H 04/22/21 22:00 85 18 100 04/22/21 21:59 95 H 93 04/22/21 21:55 93 H 100 04/22/21 21:50 70 100 04/22/21 21:48 69 152/85 H 04/22/21 21:45 72 100 04/22/21 21:40 87 95 04/22/21 21:35 144 H 96 04/22/21 21:34 148 H 173/95 H 04/22/21 21:30 79 18 100 04/22/21 21:25 76 100 04/22/21 21:20 85 100 04/22/21 21:18 76 137/75 04/22/21 21:15 77 100 04/22/21 21:10 73 100 04/22/21 21:05 71 100 04/22/21 21:04 66 134/71 04/22/21 21:00 37.0 C 70 18 100 04/22/21 20:55 86 99 04/22/21 20:50 82 100 04/22/21 20:49 75 123/62 04/22/21 20:45 77 100 04/22/21 20:40 85 100 04/22/21 20:35 83 100 04/22/21 20:31 88 133/69 04/22/21 20:30 89 100 04/22/21 20:29 81 134/71 04/22/21 20:27 134/72 04/22/21 20:26 72 137/75 04/22/21 20:25 72 99 04/22/21 20:24 78 147/78 H 04/22/21 20:22 99 H 146/76 H 04/22/21 20:20 104 H 98 04/22/21 20:19 107 H 92 04/22/21 20:15 96 H 100 04/22/21 20:14 96 H 154/76 H 04/22/21 20:10 101 H 98 04/22/21 19:14 83 132/84 04/22/21 18:15 85 134/79 04/22/21 17:19 99 H 139/76 04/22/21 16:14 88 129/76 04/22/21 15:14 36.8 C 89 18 123/74 04/22/21 14:14 93 H 128/72 04/22/21 12:31 88 129/86 04/22/21 10:27 36.8 C 100 H 20 127/82 04/22/21 10:20 100 H 127/82 Transfer of Care Handoff Completed per policy Notes Mental Status: alert / awake / arousable and participated in evaluation Patient Amnestic to Procedure: Yes Nausea / Vomiting: adequately controlled Pain: adequately controlled Airway Patency, RR, SpO2: stable & adequate BP & HR: stable & adequate Hydration State: stable & adequate Anesthetic Complications: no major complications apparent
[2021-04-23 07:30] LABS: Base Excess Cord Arterial Bld -3.1 mEq/L (-9-1.8); CO2 Cord Arterial Blood 49 mmHg (39.1-73.5); HCO3 Cord Arterial Blood 24 mmol/L (19.7-28.5); PO2 Cord Arterial Blood 31 mmHg (4.1-31.7)
[2021-04-23 07:31] LABS: Base Excess Cord Venous Blood -1.8 mEq/L (-7.7-1.9); Cord Venous Blood HCO3 24 mmol/L (18.4-26.8); Cord Venous Blood PCO2 44 mmHg (30.4-57.2); Cord Venous Blood PO2 42 mmHg (14.1-43.3); Cord Venous Blood pH 7.35 (7.20-7.44)
[2021-04-23] MEDS ORDERED: COUGH DROP (SUGAR FREE) LOZ 24 LOZ/1 BOX BUCCAL ONE (07:37)
[2021-04-23] MEDS: OXYTOCIN 20 UNITS in LACTATED RINGER'S 1,000 ML IV SCH ×2 (08:51→16:27)
[2021-04-23] MEDS: SIMETHICONE 80 MG CHEW PO SCH ×4 (12:28→20:35)
[2021-04-23] MEDS: PRENATAL VITAMIN 1 TAB PO SCH (20:35)
[2021-04-23] MEDS: DOCUSATE SODIUM 100 MG CAP PO SCH ×2 (20:35→20:40)
[2021-04-23] MEDS: FERROUS SULFATE 325 MG TAB PO SCH (20:35)
[2021-04-24] MEDS: oxyCODONE/ACETAMINOPHEN 5mg/325mg TAB PO PRN ×3 (05:45→20:09)
[2021-04-24] MEDS: IBUPROFEN 600 MG TAB PO PRN ×3 (05:45→20:08)
--- NOTE | 2021-04-24 05:59 | Obstetrical Progress Note ---
Date of Service <Tiana Guzman MD - Last Filed: 04/24/21 06:41> April 24, 2021 Assessment & Plan <Tiana Guzman MD - Last Filed: 04/24/21 06:41> (1) Vaginal delivery: 20 yo , complicated by PEC w/o SF, now POD1 from LTCS at 39wk5d for failure to descent -Continue routine care -Vitals reviewed- HDS, afebrile. BPs normal. -Blood type AB+, GBS-, Rubella immune -Encourage ambulation -Pain control with ibuprofen, oxycodone PRN -Encourage -F/u in 6 weeks with OB <Yadira Morrow MD - Last Filed: 04/24/21 07:06> (1) Vaginal delivery: Subjective <Tiana Guzman MD - Last Filed: 04/24/21 06:41> Ambulation: ambulating normally Voiding: no voiding problems (Cheung out but has not urinated yet) Passing Gas:: Yes Diet Tolerance:: regular diet Lochia:: Small Feeding Type:: breast feeding Current Pain Level(1-10): 0 Pt feels well overall, no acute complaints or distress. Feeling soreness around incision that's relieved by pain medication. Review of Systems Denies fevers/chills. Denies dyspnea, cough. Denies chest pain. Denies breast pain or discharge. Denies dysuria. Denies headache. Denies back pain. Physical Exam <Tiana Guzman MD - Last Filed: 04/24/21 06:41> General: Alert, oriented, no acute distress Cardiac: Regular rate and rhythm, normal S1, S2. No murmurs appreciated. Respiratory: Clear to auscultation b/l with good air flow entry, symmetric chest rise and fall. No wheezes or crackles. No increased work of breathing or accessory muscle use Abdomen: Soft, nontender, nondistended. Fundus firm and palpable at 1 cm below umbilicus. Surgical incision clean, dry and intact without erythema, warmth or drainage. No guarding or rebound. Skin: No rashes or lesions Extremities: No lower extremity edema, erythema or swelling. Negative Isreal's sign b/l. Results & Data ([facility]) <Tiana Guzman MD - Last Filed: 04/24/21 06:41> Vital Signs (Past 12 Hours) Vital Signs Temp Pulse Resp BP Pulse Ox 04/24/21 04:45 37.4 C 114 H 20 126/72 04/24/21 00:10 36.7 C 125 H 18 143/88 H 96 04/23/21 22:18 20 95 04/23/21 21:30 20 95 04/23/21 20:30 20 95 04/23/21 19:30 37.2 C 109 H 20 136/79 97 04/23/21 18:06 16 99 <Yadira Morrow MD - Last Filed: 04/24/21 07:06> Co-Signing Physician Notes Resident Physician Supervision Note: I was present with Dr. Guzman during the history and exam. I discussed the case with the resident and agree with the findings and plan as documented in the note. Any exceptions or clarifications are listed here: Continue routine pp care, due to void. Encourage ambulation today Documented By: Yadira Morrow MD Resident Activity Tracking <Tiana Guzman MD - Last Filed: 04/24/21 06:41> Resident Involvement: Resident Care Provided Care Provided: OB Delivery
[2021-04-24 07:17] LABS: Basophils # (auto) 0.02 K/uL (0-0.2); Basophils % (auto) 0.2 %; Eosinophils # (auto) 0.09 K/uL (0-0.5); Eosinophils % (auto) 0.8 %; Hematocrit (blood only) 26.4 % (37-47); Hemoglobin 8.6 g/dL (12.0-16.0); Immature Granulocytes # (auto) 0.02 K/uL (0.00-0.02); Immature Granulocytes % (auto) 0.2 %; Lymphocytes # (auto) 1.55 K/uL (1.2-3.4); Lymphocytes % (auto) 12.9 %; Mean Corpuscular Hemoglobin 29.3 pg (25-34); Mean Corpuscular Hgb Conc 32.6 g/dL (32-36); Mean Corpuscular Volume 89.8 fL (80-100); Mean Platelet Volume 8.9 fL (7.4-10.4); Monocytes # (auto) 0.61 K/uL (0.11-0.59); Monocytes % (auto) 5.1 %; Neutrophils # (auto) 9.68 K/uL (1.4-6.5); Neutrophils % (auto) 80.8 %; Platelet Count 215 K/uL (130-400); RDW Coefficient of Variation 14.7 % (11.5-14.5); RDW Standard Deviation 48.6 fL (36.4-46.3); Red Blood Count 2.94 M/uL (4.2-5.4); White Blood Count 11.97 K/uL (4.8-10.8)
[2021-04-24] MEDS: DOCUSATE SODIUM 100 MG CAP PO SCH ×2 (09:05→20:07)
[2021-04-24] MEDS: SIMETHICONE 80 MG CHEW PO SCH ×4 (09:06→20:09)
[2021-04-24] MEDS: PRENATAL VITAMIN 1 TAB PO SCH (09:06)
[2021-04-24] MEDS: FERROUS SULFATE 325 MG TAB PO SCH (09:06)
[2021-04-24] MEDS: SERTRALINE HCL 50 MG TABLET PO SCH (16:40)
[2021-04-24] MEDS ORDERED: bisacodyL 5 MG TABEC PO SCH (20:00)
[2021-04-25] MEDS: oxyCODONE/ACETAMINOPHEN 5mg/325mg TAB PO PRN ×2 (06:22→12:58)
[2021-04-25] MEDS: IBUPROFEN 600 MG TAB PO PRN ×2 (06:23→12:57)
[2021-04-25] MEDS ORDERED: bisacodyL 10 MG SUPP PR PRN (06:33)
[2021-04-25 06:38] LABS: Hematocrit (blood only) 24.8 % (37-47); Hemoglobin 8.1 g/dL (12.0-16.0)
--- NOTE | 2021-04-25 06:53 | Obstetrical Progress Note ---
Date of Service <Tiana Guzman MD - Last Filed: 04/25/21 08:05> April 25, 2021 Assessment & Plan <Tiana Guzman MD - Last Filed: 04/25/21 08:05> (1) Vaginal delivery: 20 yo , complicated by PEC w/o SF, now POD2 from LTCS at 39wk5d for failure of descent -Continue routine care, anticipate d/c tomorrow -Vitals reviewed- HDS, afebrile. BPs normal -Blood type AB+, GBS-, Rubella immune -Encourage ambulation -Continue Zoloft for depression, monitor mood -Pain control with ibuprofen, oxycodone PRN -Encourage -F/u in 6 weeks with OB <Betty Feliz MD, FACOG - Last Filed: 04/25/21 08:22> (1) Vaginal delivery: 20 yo , complicated by Preeclampsia w/o SF, now POD2 from LTCS at 39wk5d for failure of descent -Continue routine care, anticipate d/c tomorrow -Vitals reviewed- HDS, afebrile. BPs normal -Blood type AB+, GBS-, Rubella immune -Encourage ambulation -Continue Zoloft for depression, monitor mood -Pain control with ibuprofen, oxycodone PRN -Encourage -F/u in 6 weeks with OB Subjective <Tiana Guzman MD - Last Filed: 04/25/21 08:05> Ambulation: ambulating normally Voiding: no voiding problems Passing Gas:: Yes Diet Tolerance:: regular diet Lochia:: Small Feeding Type:: bottle feeding Current Pain Level(1-10): 0 Pt feels well overall, no acute complaints or distress. Feeling soreness around incision that's relieved by pain medication. Still having some difficulty with , using formula at present. Review of Systems Denies fevers/chills. Denies dyspnea, cough. Denies chest pain. Denies breast pain or discharge. Denies dysuria. Denies headache. Denies back pain. Physical Exam <Tiana Guzman MD - Last Filed: 04/25/21 08:05> General: Alert, oriented, no acute distress Cardiac: Regular rate and rhythm, normal S1, S2. No murmurs appreciated. Respiratory: Clear to auscultation b/l with good air flow entry, symmetric chest rise and fall. No wheezes or crackles. No increased work of breathing or accessory muscle use Abdomen: Soft, nontender, nondistended. Fundus firm and palpable at 2 cm below umbilicus. Surgical incision clean, dry and intact without erythema, warmth or drainage. No guarding or rebound. Skin: No rashes or lesions Extremities: No lower extremity edema, erythema or swelling. Negative Isreal's sign b/l. Results & Data ([facility]) <Tiana Guzman MD - Last Filed: 04/25/21 08:05> Vital Signs (Past 12 Hours) Vital Signs Temp Pulse Pulse Resp BP Pulse Ox 04/24/21 23:40 36.9 C 88 18 128/78 97 04/24/21 20:00 36.9 C 96 H 18 129/85 97 <Betty Feliz MD, FACOG - Last Filed: 04/25/21 08:22> Co-Signing Physician Notes Resident Physician Supervision Note: I was present with Dr. Guzman during the history and exam. I discussed the case with the resident and agree with the findings and plan as documented in the note. Any exceptions or clarifications are listed here: d/w pt today her mood, messaged by nursing re: concern re: mood. she is making eye contact with me, holding baby and cuddling. denies si or hi. has been proactive in knowing she has feeled depressed and reached out to her pcp Dr. Marques prior to delivery and started on zoloft. has f/u visit planned with him for this. history of depression years ago. she does not identify anything we can help her with so far this admission. bottle feeding, trying to improve baby latch on breast. rh pos, ri. labs reviewed. routine care. support given. Documented By: Betty Feliz MD, FACOG Resident Activity Tracking <Tiana Guzman MD - Last Filed: 04/25/21 08:05> Resident Involvement: Resident Care Provided Care Provided: OB Delivery
[2021-04-25] MEDS: SERTRALINE HCL 50 MG TABLET PO SCH (09:15)
[2021-04-25] MEDS: PRENATAL VITAMIN 1 TAB PO SCH (09:15)
[2021-04-25] MEDS: FERROUS SULFATE 325 MG TAB PO SCH (09:15)
[2021-04-25] MEDS: DOCUSATE SODIUM 100 MG CAP PO SCH (09:15)
[2021-04-25] MEDS: SIMETHICONE 80 MG CHEW PO SCH ×2 (09:15→12:57)
--- NOTE | 2021-04-26 16:11 | Discharge Summary (DS) ---
DATE OF ADMISSION: 04/22/2021. DATE OF DISCHARGE: 04/25/2021. ADMIT DIAGNOSES: 1. Intrauterine at 39 and 4/7 weeks. 2. +3 proteinuria with a protein creatinine ratio of 2.5. 3. Suspected atypical preeclampsia. DISCHARGE DIAGNOSES: 1. Intrauterine at 39 and 4/7 weeks. 2. +3 proteinuria with a protein creatinine ratio of 2.5. 3. Suspected atypical preeclampsia. 4. Failure to progress/descend. PROCEDURES: Pitocin induction, IUPC, FSE, primary low transverse section. HISTORY: The patient is a 20-year-old white female, 1, para 0 at 39 and 4/7 weeks who presen tere initially to labor and delivery with contractions. These started the night before presentation, were every 5 minutes. The patient had a urine dip of 3+ protein, which was new. She had never dippe d protein before. BPs under observation have been normal. Patient denies signs and symptoms of preec lampsia. Notes good movement. has been uncomplicated. Today, the day of admission, she saw her PCP and started on Zoloft. She had laboratory work done, which showed a creatinine of 0 .86 and a protein creatinine ratio of 2.5 indicating a 24-hour urine with 2500 mg. On her re cord, she did have a single blood pressure of 160/80 with a repeat of 148/84 at her 31-week visit. T he rest of her blood pressures have been in the 120s to 130s over 70s to 80s. For rest of the patien t's detailed history and physical, please see her history and physical. ASSESSMENT: This is a at 39 and 4/7 weeks with sudden new elevated proteinuria with protei n creatinine ratio of 2.5. She has no other signs and symptoms of preeclampsia and her blood pressur es have not been elevated. Given her gestational age and favorable cervix, decision was made to proc eed with induction. If she develops any signs and symptoms of severe disease, we would initiate mag. She underwent Pitocin induction. She had an amniotomy when she was 3-4 cm dilated, 90% effaced, an d -2 station, kat every 2-4 minutes with Pitocin of 15. She subsequently underwent an epidur al anesthetic, but her epidural only worked briefly and intermittently. An attempt at IUPC placement failed. She did progress to 800 and 0 and then eventually to complete-complete and 0 to +1 station. Unfortunately, her epidural never worked. She was significantly uncomfortable. The baby had signi ficant caput and had not descended past 0 station. The fetus was overall reassuring. At that point in time, a discussion was had with the patient, I felt that her pelvis was narrow that she had not loera d any drop in her station for hours and I was concerned about cephalopelvic disproportion. I d id offer the patient an opportunity to push, but we could not get her pain under control and she was unable to push. She elected section at that time. The patient underwent a primary low transverse section without difficulty to deliver a viabl e female in OP presentation. It was wedged into the pelvis. Normal tubes and ovaries were no tere bilaterally. Estimated blood loss was 700 mL. The patient's postoperative course was uncomplicated. She tolerated a regular diet, ambulated withou t difficulty, voided after the removal of her Cheung catheter and she continued on Zoloft for her depr ession. She was . Her discharge H and H was 8.1 and 24.8. She started at 11.8 and 35. She will return in six weeks for postoperative followup. She never did develop signs and symptoms of preeclampsia and did not require magnesium sulfate prophylaxis. Job ID: [id number]
== END 2021-04-25 16:46 | disposition home or self-care (01) | DRG 788 ==
LOC: OPB 09:56 → 4S1 09:57 → 4S2 04-23 10:04
DX: Z82.49 Family history of ischemic heart disease and other diseases of the circulatory system; Z37.0 Single live birth; O14.94 Unspecified pre-eclampsia, complicating childbirth; Z87.891 Personal history of nicotine dependence; F32.A Depression, unspecified; Z3A.39 39 weeks gestation of pregnancy; O32.4XX0 Maternal care for high head at term, not applicable or unspecified; Z91.030 Bee allergy status; Z91.048 Other nonmedicinal substance allergy status; Z79.899 Other long term (current) drug therapy; O99.344 Other mental disorders complicating childbirth

== ENCOUNTER 2024-10-13 14:48 | Inpatient (IN) ==
[2024-10-13 15:48] LABS: Hematocrit (blood only) 33.7 % (37.0-47.0); Hemoglobin 11.2 g/dl (12.0-16.0); Mean Corpuscular Hemoglobin 28.3 pg (25.0-34.0); Mean Corpuscular Hgb Conc 33.2 g/dL (32.0-36.0); Mean Corpuscular Volume 85.1 fL (80.0-100.0); Mean Platelet Volume 9.3 fL (9.4-12.4); Platelet Count 269 K/uL (130-400); RDW Coefficient of Variation 14.6 % (11.5-14.5); RDW Standard Deviation 44.9 fL (36.4-46.3); Red Blood Count 3.96 M/uL (4.20-5.40); White Blood Count 8.45 K/ul (4.8-10.8)
[2024-10-13 16:06] LABS: Albumin Globulin Ratio 1.1 (0.9-2); Albumin Level 3.4 gm/dl (3.4-5.0); BUN Creatinine Ratio 17.9 (10-20); Bilirubin,Total 0.2 mg/dl (0.2-1.0); Calcium 9.8 mg/dl (8.6-10.3); Creatinine Clr Calc Pharmacy 193.9 ml/min; Globulin 3.2 gm/dl (2.5-4.0); Potassium 3.8 mmol/L (3.5-5.1); Total Protein 6.6 gm/dl (6.0-8.3)
[2024-10-13 16:28] LABS: Creatinine Urine Random 130.2 mg/dl; Protein Creatinine Ratio Urine 0.3 (0-0.2); Total Protein Urine Random 35.3 mg/dl (0-11.9)
--- NOTE | 2024-10-13 16:51 | History & Physical Report ---
Date of Service October 13, 2024 Assessment & Plan (1) Gestational proteinuria: (2) History of pre-eclampsia in prior , currently in third trimester: (3) Gestational diabetes mellitus (GDM) affecting , antepartum: Daria Tijerina is a 24yo @38w0d with elevated blood pressure 141-158/82-88 over the course of 1.5hrs this afternoon. Labs checked on L&D show normal platelets, creatinine and LFT's at this time. Pr/Cr 0.3. She meets criteria for gestational proteinuria at this time, but has not demonstrated sustained hypertension to allow a diagnosis of either gHTN or PreE. She has not had two elevated blood pressures >4 hours apart at this time, and h as demonstrated normalization of blood pressure without any antihypertensive treatment. Due to high suspicion for progression to preeclampsia in the near future, we will observe her here on L&D for several more hours with serial BP measurements before making a decision about next steps. History of Present Illness Primary Care Provider: Pro Marques, DO Tijerina is a 24yo @38w0d presenting to L&D for observation due to elevated BP at scheduled OB clinic visit this afternoon. Current complicated by hypothyroid, GDMA1, H/O with scheduled repeat, and history of preeclampsia in prior . Prior to today at 14:10, all blood pressures measured this have been in the normal range. Between 14:10 and 15:30 today, systolic ranged from 141- 158 and diastolic from 82-88. After 15:30, however, BP has been normal. Current value is 125/70. She denies having any concerning symptoms in recent days or weeks including headache, shortness of breath, chest pain, dizziness, vision changes, nausea/vomiting, RUQ pain, LE tingling/numbness. Does endorse some lower abdominal discomfort likely due to the increasing size and weight of fetus. She feels baby moving and kicking regularly, denies feeling any contractions, denies vaginal bleeding or discharge. Denies any trauma or substance use. GBS neg, T pallidum neg. Allergies Allergy/AdvReac Type Severity Reaction Status Date / Time bee venom protein (honey bee) Allergy Unknown swelling Verified 10/13/24 15:44 No Known Drug Allergies Allergy Unknown Verified 10/13/24 15:44 Home Medications Medication Instructions Recorded Confirmed Type 21-iron fu-folic acid 1 mg PO DAILY 03/18/24 10/13/24 History [ Complete] aspirin 81 mg capsule 81 mg PO DAILY 10/10/24 10/13/24 History Patient History Medical History (Updated 10/13/24 @ 16:52 by Casper Mcnulty DO) History of chicken pox Atypical mole Hyperlipidemia PCOS (polycystic ovarian syndrome) Irregular menses Dysmenorrhea s/p depo but did not like mood swings. No ocps because dad clotting history!!! Needs core man. No control now and not sexually active Preeclampsia Preeclampsia MDD (major depressive disorder) Eczema Eoing well. Triamcinolone prn Gastroesophageal reflux disease Omeprazole prn but not often. Given GERD sheet and discussed returning if needing often. Surgical History H/O section 2020, FTD H/O wisdom tooth extraction Family History Father Clotting disorder Prostate cancer Mother No significant active problems Family/Other Hypertension Grandfather (Paternal) Diabetes Grandmother (Paternal) Stroke Denies family history of Ovarian cancer Myocardial infarction Breast cancer Lung cancer Colorectal cancer Social History (Updated 03/18/24 @ 15:12 by Lizeth uD) Smoking Status: Former smoker Tobacco Type: Cigarettes and E-cigarettes / Vaping Age Started Using Tobacco: 18; Age Quit Using Tobacco: 20; packs per day: 0.25; Second Hand Exposure: No; Hx Alcohol Use: No Hx Substance Use: No Preferred Language: Monegasque Communication Ability: Effective Visual Impairment: Limited Hearing Ability: Normal Manager Ship Required: No Beliefs That Will Affect Care: None marital status: Single marital status details: Vahe Carcamo (23) [phone] Current Living Situation: Parent, Family and Significant Other Current Living Situation Comment: lives with Radha, This current is Edvin's first baby current occupational status: employed 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 How many Children do You have: 1 Feels Safe at Home: Yes Childhood Exposure to Second-Hand Smoke: Yes caffeine: Yes (soda) Dental Care, Regularly: Yes Physical Activity Frequency: Does not Exercise Seatbelt Use: always Sunscreen Use: Yes Assistive Devices: Glasses Physical Exam Physical Exam: Gen: appearing well and in no acute distress, A&Ox4 HEENT: EOM intact, anicteric sclerae, PERRL b/l, no cervical lymphadenopathy CV: RRR, +s1/s2, no murmurs/rubs/gallops, 2+ radial pulses b/l Resp: clear to auscultation b/l, fair air movement limited by and body habitus, no wheeze/rales/rhonchi GI/Abd: +BS, gravid, abdomen nontender to palpation, no organomegaly palpated LE: 1+ pitting edema to knees b/l Neuro: patellar DTR 1+ ; no facial droop, speech intact, b/l symmetric movements of UE and LE Genitourinary: FHT Cat 1 [place] quiet Results & Data Vital Signs (Past 12 Hours) Vital Signs Temp Pulse Resp BP 10/13/24 16:16 89 10/13/24 16:16 125/70 10/13/24 15:43 90 10/13/24 15:43 135/65 10/13/24 15:28 36.8 C 18 10/13/24 15:27 91 H 153/86 H 10/13/24 15:22 18 10/13/24 15:22 36.8 C 18 10/13/24 15:17 95 H 149/88 H 10/13/24 15:07 85 141/85 H Laboratory Results 10/13/24 10/13/24 Range/Units 15:32 14:45 WBC 8.45 (4.8-10.8) K/ul RBC 3.96 L (4.20-5.40) M/uL Hgb 11.2 L (12.0-16.0) g/dl Hct 33.7 L (37.0-47.0) % MCV 85.1 (80.0-100.0) fL MCH 28.3 (25.0-34.0) pg MCHC 33.2 (32.0-36.0) g/dL RDW Std Deviation 44.9 (36.4-46.3) fL RDW Coeff of Yahir 14.6 H (11.5-14.5) % Plt Count 269 (130-400) K/uL MPV 9.3 L (9.4-12.4) fL Sodium 136 (136-145) mmol/L Potassium 3.8 (3.5-5.1) mmol/L Chloride 107 (98-107) mmol/L Carbon Dioxide 21 (21-32) mmol/L Anion Gap 8 (3-11) BUN 10 (6-23) mg/dl Creatinine 0.56 L (0.6-1.2) mg/dl Est Cr Clr Drug Dosing 193.9 ml/min eGFR 131.43 BUN/Creatinine Ratio 17.9 (10-20) Glucose 122 H (70-99(Fasting)) mg/dl Calcium 9.8 (8.6-10.3) mg/dl Total Bilirubin 0.2 (0.2-1.0) mg/dl AST 11 L (13-39) U/L ALT 11 (7-52) U/L Alkaline Phosphatase 86 (34-104) U/L Total Protein 6.6 (6.0-8.3) gm/dl Albumin 3.4 (3.4-5.0) gm/dl Globulin 3.2 (2.5-4.0) gm/dl Albumin/Globulin Ratio 1.1 (0.9-2) Ur Random Creatinine 130.2 mg/dl U Random Total Protein 35.3 H (0-11.9) mg/dl Protein/Creatinin Ratio 0.3 H (0-0.2) Supervising Physician Co-Signing Physician Notes Resident Physician Supervision Note: I interviewed and examined the patient. Discussed with Dr. Mcnulty and agree with findings and plan as documented in the note. Any exceptions or clarifications are listed here: Dr. Mcnulty saw the patient, presented the case to me, examined the patient with my supervision, and I agree with the documentation above. Plan to observe for several hours with BP monitoring to look for possible diagnosis of gHTN/PreE, in which case delivery will be indicated and performed. If no diagnosis beyond proteinuria can be met, very close outpatient followup will be required until a diagnosis declares itself. Documented By: Loren Soto MD, FACOG Resident Activity Tracking Resident Involvement: Resident Care Provided Care Provided: OB Delivery (1) Gestational proteinuria Trimester: third trimester Qualified Code(s): O12.13 - Gestational proteinuria, third trimester
--- NOTE | 2024-10-13 21:09 | Labor Progress Brief Note ---
Date of Service October 13, 2024 Subjective Delayed note due to other patient care. Breezy began to experience a headache and severe-range blood pressure shortly after 6pm. At that point she was 168/90, and it had been 4 hours from her initial elevated blood pressures - so despite the interval of normotension, she met the diagnosis of preeclampsia. In addition, given her headache and the degree of BP elevation, she met the diagnosis of severe features. I counseled Breezy on the diagnosis, the recommendation for magnesium infusion, and the recommendation to proceed to delivery. In her case this will be via repeat section. Breezy is agreeable. FHT were Cat 1 and toco has shown activity Q3-5 at times, some of which patient feels but are not painful. Since the patient was offered food during the earlier normotensive interval, a decision was made in consultation with anesthesia to wait several hours before proceeding with her surgery so long as monitoring remains reassuring in the meantime. BP defervesced to 128/62 now, without any antihypertensive being administered, and FHT are reassuring. Assessment & Plan Admission and Anticipated Discharge Date Admission Date: October 13, 2024 Results & Data Vital Signs (Past 12 Hours) Vital Signs Temp Pulse Resp BP 10/13/24 21:01 94 H 10/13/24 21:01 128/62 10/13/24 21:00 18 10/13/24 20:46 96 H 10/13/24 20:46 120/59 L 10/13/24 20:45 18 10/13/24 20:30 18 10/13/24 20:30 103 H 10/13/24 20:30 134/77 10/13/24 20:16 101 H 10/13/24 20:16 18 136/62 10/13/24 19:59 18 10/13/24 19:59 100 H 10/13/24 19:59 143/89 H 10/13/24 19:46 99 H 10/13/24 19:46 143/83 H 10/13/24 19:30 18 10/13/24 19:30 98.2 F 18 10/13/24 19:30 90 10/13/24 19:30 156/78 H 10/13/24 19:15 96 H 10/13/24 19:15 151/74 H 10/13/24 19:01 102 H 10/13/24 19:01 168/90 H 10/13/24 18:45 93 H 10/13/24 18:45 146/94 H 10/13/24 18:30 99 H 10/13/24 18:30 141/87 H 10/13/24 18:11 96 H 10/13/24 18:11 154/89 H 10/13/24 16:16 89 10/13/24 16:16 125/70 10/13/24 15:43 90 10/13/24 15:43 135/65 10/13/24 15:28 98.2 F 18 10/13/24 15:27 91 H 153/86 H 10/13/24 15:22 18 10/13/24 15:22 98.2 F 18 10/13/24 15:17 95 H 149/88 H 10/13/24 15:07 85 141/85 H Coding Level of Care Code None
--- NOTE | 2024-10-13 21:46 | Anesthesiology Consultation ---
Date of Service October 13, 2024 Assessment & Plan (1) Encounter for pre-operative examination: Chart Review Chart Review: Patient NOT seen in Pre Admission Testing and Acceptable Risk for Labor Epidural Consults Requested none History Surgery Operation Date: 10/13/24 21:45 Proposed Procedures p Section in LD - Loren Soto MD Height/Weight Height: 5 ft 3 in Weight: 117.934 kg Allergies Allergy/AdvReac Type Severity Reaction Status Date / Time bee venom protein (honey bee) Allergy Unknown swelling Verified 10/13/24 15:44 No Known Drug Allergies Allergy Unknown Verified 10/13/24 15:44 Medications Home Medications Medication Instructions Recorded Confirmed Last Taken 21-iron fu-folic acid 1 mg PO DAILY 03/18/24 10/13/24 10/13/24 04:00 [ Complete] aspirin 81 mg capsule 81 mg PO DAILY 10/10/24 10/13/24 10/10/24 Active Medications Generic Name Dose Route Start Last Admin Trade Name Freq PRN Reason Stop Dose Admin Lactated Ringer's 1,000 mls @ 125 mls/hr 10/13/24 20:30 10/13/24 19:53 Lr IV 10/16/24 20:29 75 mls/hr .Q8H KRISTAL Administration Magnesium Sulfate 40 gm in 1,000 mls @ 50 mls/hr 10/13/24 19:30 10/13/24 20:27 Magnesium Sulfate / Wtr IV 11/12/24 19:29 50 mls/hr .Q20H KRISTAL Infusion Cefazolin Sodium 3,000 mg in 72.5 mls @ 130 mls/hr 10/13/24 21:30 10/13/24 21:42 Ancef 3000mg IV 10/13/24 23:59 145 mls/hr 2130 KRISTAL Administration Protocol NPO Date Last Intake of Fluids: 10/13/24 Time Last Intake of Fluids: 20:00 Date Last Intake of Solids: 10/13/24 Time Last Intake of Solids: 17:45 Past Medical History Medical History History of chicken pox Atypical mole Hyperlipidemia PCOS (polycystic ovarian syndrome) Irregular menses Dysmenorrhea s/p depo but did not like mood swings. No ocps because dad clotting history!!! Needs administrative hearing officer. No control now and not sexually active Preeclampsia Preeclampsia MDD (major depressive disorder) Eczema Eoing well. Triamcinolone prn Gastroesophageal reflux disease Omeprazole prn but not often. Given GERD sheet and discussed returning if needing often. Past Family History Family History Father Clotting disorder has not been tested, his parents have blood clots too. Prostate cancer Mother No significant active problems Family/Other Hypertension Both grandparents have HTN Grandfather (Paternal) Diabetes Grandmother (Paternal) Stroke Denies family history of Ovarian cancer Myocardial infarction Breast cancer Lung cancer Colorectal cancer Past Surgical History Surgical History H/O section 2020, FTD H/O wisdom tooth extraction Social History Smoking Status: Former smoker tobacco type: cigarettes Hx Alcohol Use: No Hx Substance Use: No substance use type: does not use Physical Exam Vital Signs Last Vital Signs Temp 98.2 F 10/13/24 19:30 Pulse 90 10/13/24 21:30 Resp 18 10/13/24 21:00 BP 143/71 H 10/13/24 21:30 Testing Laboratory Results 10/13/24 15:32 10/13/24 15:32 Blood Type AB Positive 10/13/24 15:34 Antibody Screen NEGATIVE 10/13/24 15:34
--- NOTE | 2024-10-13 22:43 | Operative Report ---
Post Operative Report Pre & Post Diagnosis Operation Date: 10/13/24 21:45 Pre-Op Diagnosis: 1. Repeat section 2. Severe preeclampsia Post-Op Diagnosis: Same as preop I identified the patient and participated in the time-out.: Yes Procedure Operation Date: 10/13/24 21:45 Actual Procedures Repeat Low Transverse Section in - Loren Soto MD Surgeon Loren Soto MD Mamma Logist Donna Charles RN Quantitative Blood Loss (QBL) 255 Findings Consistent with Post-Op Diagnosis Specimens Placenta, Cord blood Anesthesia Type Spinal Complications none Disposition Accompanied Patient To Recovery: Yes Disposition: L&D Description of Procedure The patient was placed operating table in the supine position with a leftward tilt. She was prepped and draped in standard sterile fashion. The anesthetic was tested and found to be adequate. A time-out was held, identifying correct patient, procedure, positioning and preoperative antibiotics. There were no concerns. A Pfannenstiel skin incision was made with a knife and taken down to the underlying layer of fascia. The fascia was incised in the midline with the knife and taken out laterally with scissors. The superior edge of the fascial incision was grasped, elevated and dissected off the underlying rectus both superiorly and inferiorly. The muscles were bluntly in the midline. The peritoneum was entered bluntly. The incision was then stretched. The bladder retractor was placed. The vesicouterine peritoneum was identified, entered with scissors and taken out laterally with scissors. The bladder flap was created digitally. A hysterotomy incision was created transversely in the lower uterine segment, final entry being accomplished in a blunt manner with the audiovisual equipment operator's fingers. Clear amniotic fluid was encountered. The audiovisual equipment operator's hand was used to elevate the head to the hysterotomy. The head was delivered using mild fundal pressure, and the shoulders and body followed without difficulty. The cord was clamped and cut and the infant was then handed off to the awaiting team truck driver. Cord blood was obtained. The placenta was Manually extracted. The uterus was exteriorized and cleared of all clot and debris with moistened laparotomy sponges. The hysterotomy incision was repaired in a running locked layer of 0-vicryl for excellent hemostasis. The ovaries and tubes were seen to be normal bilaterally. The uterus was gently replaced in the abdomen, and the gutters were cleared of clot and debris. A final inspection of the hysterotomy revealed continued hemostasis. The rectus muscles were allowed to reapproximate naturally. The fascia was then reapproximated with 1 Vicryl in a running nonlocked manner. The fascia was examined and found to be free of defect following closure. The subcutaneous tissue was copiously irrigated and reapproximated with 0-chromic, then the skin edges were closed with 4-0 monocryl in a subcuticular fashion. A dermabond dressing was applied. The yanez was found to be draining clear yellow urine at completion of the procedure. I attest to the content of the Intraoperative Record and any orders documented therein. Any exceptions are noted below. I attest to the content of the Intraoperative Record and any orders documented therein. Any exceptions are noted below. OB Procedure Charges 65488
--- NOTE | 2024-10-13 22:48 | Anesthesiology Progress Note ---
Date of Service October 13, 2024 Anesthesia Post Procedure Vital Signs Vital Signs: Temp Pulse Resp BP Pulse Ox 10/13/24 22:46 98 10/13/24 22:46 90 10/13/24 22:46 93 10/13/24 22:46 92 H 10/13/24 22:42 88 10/13/24 22:42 127/60 10/13/24 22:41 98 10/13/24 22:41 92 H 10/13/24 21:45 102 H 10/13/24 21:45 133/65 10/13/24 21:30 90 10/13/24 21:30 143/71 H 10/13/24 21:16 100 H 10/13/24 21:16 123/59 L 10/13/24 21:01 94 H 10/13/24 21:01 128/62 10/13/24 21:00 18 10/13/24 20:46 96 H 10/13/24 20:46 120/59 L 10/13/24 20:45 18 10/13/24 20:30 18 10/13/24 20:30 103 H 10/13/24 20:30 134/77 10/13/24 20:16 101 H 10/13/24 20:16 18 136/62 10/13/24 19:59 18 10/13/24 19:59 100 H 10/13/24 19:59 143/89 H 10/13/24 19:46 99 H 10/13/24 19:46 143/83 H 10/13/24 19:30 18 10/13/24 19:30 98.2 F 18 10/13/24 19:30 90 10/13/24 19:30 156/78 H 10/13/24 19:15 96 H 10/13/24 19:15 151/74 H 10/13/24 19:01 102 H 10/13/24 19:01 168/90 H 10/13/24 18:45 93 H 10/13/24 18:45 146/94 H 10/13/24 18:30 99 H 10/13/24 18:30 141/87 H 10/13/24 18:11 96 H 10/13/24 18:11 154/89 H 10/13/24 16:16 89 10/13/24 16:16 125/70 10/13/24 15:43 90 10/13/24 15:43 135/65 10/13/24 15:28 98.2 F 18 10/13/24 15:27 91 H 153/86 H 10/13/24 15:22 18 10/13/24 15:22 98.2 F 18 10/13/24 15:17 95 H 149/88 H 10/13/24 15:07 85 141/85 H Transfer of Care Handoff Completed per policy Notes Mental Status: alert / awake / arousable and participated in evaluation Patient Amnestic to Procedure: Yes Nausea / Vomiting: adequately controlled Pain: adequately controlled Airway Patency, RR, SpO2: stable & adequate BP & HR: stable & adequate Hydration State: stable & adequate Neuraxial Anesthesia: was administered and sensory block is resolving Anesthetic Complications: no major complications apparent and Pt Satisfied with anesthetic care
[2024-10-14 06:21] LABS: Basophils # (auto) 0.02 K/uL (0.00-0.20); Basophils % (auto) 0.1 %; Hematocrit (blood only) 31.6 % (37.0-47.0); Hemoglobin 10.6 g/dl (12.0-16.0); Immature Granulocytes # (auto) 0.08 K/uL (0.01-0.20); Immature Granulocytes % (auto) 0.6 %; Lymphocytes # (auto) 1.04 K/uL (1.20-3.40); Lymphocytes % (auto) 7.7 %; Mean Corpuscular Hemoglobin 28.2 pg (25.0-34.0); Mean Corpuscular Hgb Conc 33.5 g/dL (32.0-36.0); Monocytes # (auto) 0.49 K/uL (0.11-0.59); Monocytes % (auto) 3.6 %; Platelet Count 254 K/uL (130-400); RDW Coefficient of Variation 14.4 % (11.5-14.5); RDW Standard Deviation 43.7 fL (36.4-46.3); Red Blood Count 3.76 M/uL (4.20-5.40); White Blood Count 13.53 K/ul (4.8-10.8)
--- NOTE | 2024-10-14 06:22 | Obstetrical Progress Note ---
Date of Service October 14, 2024 Assessment & Plan (1) state: (2) Pre-eclampsia, severe, delivered: (3) S/P : Plan Breezy is a 24yo , day 1 s/p for preeclampsia with severe features, s/p mag last night. Continue on Mag drip through 8am this AM to make a full 12hrs due to just meeting criteria for severe features Catheter may come out at time mag is stopped, encouraged to try ambulating from that time. Pain control with toradol, then ibuprofen. Continue good hydration, diet and as tolerated. Admission and Anticipated Discharge Date Admission Date: October 13, 2024 Supervising Physician Co-Signing Physician Notes Resident Physician Supervision Note: I interviewed and examined the patient. Discussed with Dr. Mcnulty and agree with findings and plan as documented in the note. Any exceptions or clarifications are listed here: [ ] Documented By: Loren Soto MD, FACOG Subjective Breezy is a 24yo , day 1 s/p for preeclampsia with severe features, started mag last night around 20:00. Feels tired and had some dizziness and nausea, but otherwise well Ambulation: no, only up to stand for bed change Void: cath in, no BM Gas: yes Lochia: small Diet: tolerated well, last food was night prior Feeding plan: breast Sx: none other than current soreness and being tired - denies headaches, vision changes, RUQ abdominal pain, or significant swelling Physical Exam Physical Exam: Gen: no acute distress CV: RRR, no m/r/g Resp: clear to auscultation b/l GI/Abd: +BS, fundus firm at lvl of umbilicus, mild tenderness to palpation, low- transverse scar healing well LE: 1+ edema, nontender to palpation Results & Data Vital Signs (Past 12 Hours) Vital Signs Temp Pulse Resp BP Pulse Ox 10/14/24 06:16 102 H 94 10/14/24 06:11 106 H 95 10/14/24 06:06 106 H 95 10/14/24 06:01 95 10/14/24 06:01 102 H 10/14/24 06:01 97 H 115/60 10/14/24 06:00 18 10/14/24 05:56 96 H 94 10/14/24 05:51 100 H 93 10/14/24 05:46 94 H 92 10/14/24 05:41 92 H 93 10/14/24 05:36 100 H 94 10/14/24 05:31 92 H 92 10/14/24 05:26 95 H 95 10/14/24 05:21 103 H 95 10/14/24 05:16 98 H 95 10/14/24 05:11 99 H 94 10/14/24 05:06 108 H 93 10/14/24 05:01 97 H 92 10/14/24 05:00 18 10/14/24 05:00 92 H 131/60 91 10/14/24 04:56 100 H 94 10/14/24 04:55 95 H 91 10/14/24 04:51 92 H 93 10/14/24 04:46 99 H 94 10/14/24 04:44 91 H 91 10/14/24 04:41 110 H 95 10/14/24 04:36 100 H 94 10/14/24 04:31 106 H 93 10/14/24 04:26 101 H 95 10/14/24 04:21 104 H 95 10/14/24 04:16 102 H 95 10/14/24 04:11 108 H 95 10/14/24 04:06 103 H 94 10/14/24 04:01 107 H 95 10/14/24 04:00 36.7 C 18 10/14/24 04:00 18 10/14/24 04:00 106 H 127/67 10/14/24 03:56 112 H 93 10/14/24 03:51 108 H 95 10/14/24 03:46 108 H 95 10/14/24 03:41 102 H 96 10/14/24 03:36 96 H 93 10/14/24 03:31 98 H 93 10/14/24 03:26 123 H 96 10/14/24 03:21 93 H 94 10/14/24 03:16 102 H 93 05 03:12 102 H 90 10/14/24 03:11 107 H 95 05 03:06 105 H 93 10/14/24 03:01 106 H 95 10/14/24 03:00 18 10/14/24 03:00 102 H 126/64 10/14/24 02:56 97 H 93 05 02:51 97 H 93 10/14/24 02:46 92 H 93 10/14/24 02:41 88 92 10/14/24 02:36 100 H 95 10/14/24 02:31 114 H 95 10/14/24 02:30 112 H 91 05 02:26 110 H 95 10/14/24 02:21 87 94 10/14/24 02:17 95 H 94 10/14/24 02:16 93 H 94 10/14/24 02:11 97 H 96 10/14/24 02:08 102 H 94 10/14/24 02:06 89 95 10/14/24 02:02 100 H 94 10/14/24 02:01 95 H 95 10/14/24 02:00 18 10/14/24 02:00 93 H 136/66 10/14/24 01:56 101 H 96 10/14/24 01:52 93 H 94 10/14/24 01:51 108 H 96 10/14/24 01:46 102 H 95 10/14/24 01:41 88 95 10/14/24 01:40 93 H 94 10/14/24 01:36 92 H 97 10/14/24 01:32 88 94 10/14/24 01:31 91 H 96 10/14/24 01:27 95 H 94 10/14/24 01:26 88 95 10/14/24 01:21 86 95 10/14/24 01:16 91 H 97 10/14/24 01:15 96 H 93 10/14/24 01:11 97 H 97 10/14/24 01:06 98 H 96 10/14/24 01:01 89 96 10/14/24 01:00 18 10/14/24 01:00 95 H 93 10/14/24 00:56 92 H 96 10/14/24 00:52 89 90 10/14/24 00:51 86 96 05 00:46 88 91 10/14/24 00:43 97 H 94 10/14/24 00:41 90 96 05 00:40 18 10/14/24 00:40 88 126/73 10/14/24 00:36 93 H 95 10/14/24 00:34 86 93 05 00:31 89 96 10/14/24 00:26 93 H 95 10/14/24 00:23 99 H 94 10/14/24 00:21 96 H 95 10/14/24 00:16 97 10/14/24 00:16 92 H 10/14/24 00:16 101 H 93 10/14/24 00:11 96 10/14/24 00:11 89 10/14/24 00:11 94 H 128/53 L 10/14/24 00:10 18 10/14/24 00:10 91 H 94 10/14/24 00:06 97 H 97 10/14/24 00:01 87 97 10/13/24 23:56 96 10/13/24 23:56 92 H 10/13/24 23:51 97 10/13/24 23:51 79 10/13/24 23:46 98 10/13/24 23:46 93 H 10/13/24 23:43 92 10/13/24 23:43 91 H 10/13/24 23:41 97 10/13/24 23:41 87 10/13/24 23:41 86 10/13/24 23:41 137/60 10/13/24 23:40 18 10/13/24 23:40 18 10/13/24 23:36 97 10/13/24 23:36 85 10/13/24 23:31 98 10/13/24 23:31 92 H 10/13/24 23:31 81 10/13/24 23:31 136/64 10/13/24 23:30 18 10/13/24 23:26 98 10/13/24 23:26 85 10/13/24 23:25 92 10/13/24 23:25 96 H 10/13/24 23:22 86 10/13/24 23:22 135/61 10/13/24 23:21 97 10/13/24 23:21 86 10/13/24 23:20 18 10/13/24 23:16 98 10/13/24 23:16 86 10/13/24 23:12 86 10/13/24 23:12 128/59 L 10/13/24 23:11 98 10/13/24 23:11 86 10/13/24 23:10 20 10/13/24 23:06 98 10/13/24 23:06 80 10/13/24 23:03 85 10/13/24 23:03 123/58 L 10/13/24 23:01 98 10/13/24 23:01 84 10/13/24 23:00 20 10/13/24 22:56 97 10/13/24 22:56 90 10/13/24 22:53 94 H 10/13/24 22:53 134/63 10/13/24 22:51 97 10/13/24 22:51 88 10/13/24 22:50 21 10/13/24 22:46 98 10/13/24 22:46 90 10/13/24 22:46 93 10/13/24 22:46 92 H 10/13/24 22:42 88 10/13/24 22:42 127/60 10/13/24 22:41 98 10/13/24 22:41 92 H 10/13/24 22:40 36.6 C 18 10/13/24 21:45 102 H 10/13/24 21:45 133/65 10/13/24 21:30 90 10/13/24 21:30 143/71 H 10/13/24 21:16 100 H 10/13/24 21:16 123/59 L 10/13/24 21:01 94 H 10/13/24 21:01 128/62 10/13/24 21:00 18 10/13/24 20:46 96 H 10/13/24 20:46 120/59 L 10/13/24 20:45 18 10/13/24 20:30 18 10/13/24 20:30 103 H 10/13/24 20:30 134/77 10/13/24 20:16 101 H 10/13/24 20:16 18 136/62 10/13/24 19:59 18 10/13/24 19:59 100 H 10/13/24 19:59 143/89 H 10/13/24 19:46 99 H 10/13/24 19:46 143/83 H 10/13/24 19:30 18 10/13/24 19:30 36.8 C 18 10/13/24 19:30 90 10/13/24 19:30 156/78 H 10/13/24 19:15 96 H 10/13/24 19:15 151/74 H 10/13/24 19:01 102 H 10/13/24 19:01 168/90 H 10/13/24 18:45 93 H 10/13/24 18:45 146/94 H 10/13/24 18:30 99 H 10/13/24 18:30 141/87 H Resident Activity Tracking Resident Involvement: Resident Care Provided Care Provided: OB Delivery
[2024-10-14 20:51] VITALS: O2SAT 96
[2024-10-15 06:57] LABS: Hematocrit (blood only) 29.3 % (37.0-47.0); Hemoglobin 9.5 g/dl (12.0-16.0)
--- NOTE | 2024-10-15 08:19 | Obstetrical Progress Note ---
Date of Service October 15, 2024 Assessment & Plan (1) state: (2) Pre-eclampsia, severe, delivered: (3) S/P : Plan Breezy is a 24yo , day 2 s/p for preeclampsia with severe features, s/p 12hr mag infusion. Continue ambulating and diet as tolerated. Pain control with toradol, then ibuprofen. Continue good hydration, diet and as tolerated. Home today, followup in 6wks Admission and Anticipated Discharge Date Admission Date: October 13, 2024 Supervising Physician Co-Signing Physician Notes Patient seen with resident and agree with the above findings and plan. Stable for discharge as preferred. Subjective Breezy is a 24yo , day 2 s/p for preeclampsia with severe features, s/p mag infusion for 12hrs. Feels: well, no concerns Ambulation: yes Void: urine, BM Gas: yes Lochia: small Diet: tolerating well Feeding plan: breast Sx: none other than some soreness - denies headaches, vision changes, RUQ abdominal pain, or significant swelling Physical Exam Physical Exam: Gen: no acute distress CV: RRR, no m/r/g Resp: clear to auscultation b/l GI/Abd: +BS, fundus firm at lvl of umbilicus, mild tenderness to palpation, low- transverse scar healing well LE: trace edema, nontender to palpation Results & Data Vital Signs (Past 12 Hours) Vital Signs Temp Pulse Resp BP Pulse Ox O2 Del Method 10/15/24 00:10 36.9 C 98 H 18 121/74 96 Room Air 10/14/24 20:30 36.4 C L 92 H 18 110/69 96 Room Air Resident Activity Tracking Resident Involvement: Resident Care Provided Care Provided: OB Delivery
[2024-10-15 08:37] VITALS: BP 115/73; PULSE 61; RESP 17; TEMP 97.9
--- NOTE | 2024-10-19 09:59 | Discharge Summary ---
Date of Service October 19, 2024 Admission HPI Per Admitting Provider Breezy is a 24yo @38w0d presenting to L&D for observation due to elevated BP at scheduled OB clinic visit this afternoon. Current complicated by hypothyroid, GDMA1, H/O with scheduled repeat, and history of preeclampsia in prior . Prior to today at 14:10, all blood pressures measured this have been in the normal range. Between 14:10 and 15:30 today, systolic ranged from 141- 158 and diastolic from 82-88. After 15:30, however, BP has been normal. Current value is 125/70. She denies having any concerning symptoms in recent days or weeks including headache, shortness of breath, chest pain, dizziness, vision changes, nausea/vomiting, RUQ pain, LE tingling/numbness. Does endorse some lower abdominal discomfort likely due to the increasing size and weight of fetus. She feels baby moving and kicking regularly, denies feeling any contractions, denies vaginal bleeding or discharge. Denies any trauma or substance use. GBS neg, T pallidum neg. Discharge Data Consultations 10/13/24 19:16 Consult Anesthesiology Stat Procedures Performed Operation Date: 10/13/24 21:45 Actual Procedures p Section in - Loren Soto MD Hospital Course (1) state: (2) Pre-eclampsia, severe, delivered: (3) S/P : Plan Breezy is a 24yo , day 2 s/p for preeclampsia with severe features, s/p 12hr mag infusion. Continue ambulating and diet as tolerated. Pain control with toradol, then ibuprofen. Continue good hydration, diet and as tolerated. Home today, followup in 6wks Supervising Physician Co-Signing Physician Notes Patient seen with resident and agree with the above findings and plan. Stable for discharge as preferred. Coding Level of Care Code 02484 IN/OBS DISCH 30 MIN/LESS Diagnoses state Z39.2 Pre-eclampsia, severe, delivered O14.14 S/P Z98.891
== END 2024-10-15 15:11 | disposition home or self-care (01) ==
LOC: OPB 14:48 → 4S1 14:51 → 4E2 10-14 10:04